=== PATIENT | male | born 1990 | race Two or more races ===

== ENCOUNTER 2019-10-26 19:18 | Emergency (ER) | payer MEDICAID, OTHER ==
[~2019-10-26] VITALS: Ht 182.9 cm; Wt 102.1 kg
[2019-10-26 20:15] VITALS: BP 125/84
[2019-10-26 20:57] LABS: Basophils # (auto) 0.1 10 ^3/uL (0-0.2); Basophils % (auto) 0.5 % (0.0-2.0); Eosinophils # (auto) 0.1 10 ^3/uL (0-0.8); Eosinophils % (auto) 1.2 % (0.0-7.0); Hematocrit 42.5 % (41.0-53.0); Hemoglobin 14.2 g/dL (13.5-17.5); Lymphocytes # (auto) 3.5 10 ^3/uL (0.4-5.4); Lymphocytes % (auto) 33.1 % (10.0-50.0); Mean Corpuscular Hemoglobin 27.8 pg (28.0-32.0); Mean Corpuscular Hgb Conc. 33.5 g/dL (32.0-36.0); Mean Corpuscular Volume 83.2 fL (80.0-100.0); Monocytes # (auto) 0.9 10 ^3/uL (0-1.3); Monocytes % (auto) 8.2 % (0.0-12.0); Neutrophils # (auto) 6.1 10 ^3/uL (1.6-8.6); Platelet Count (auto) 242 10^3/uL (140-450); Red Blood Cells 5.11 10^6/uL (4.5-5.90); Red Cell Distribution Width 13.5 % (11.8-14.3); White Blood Cell 10.7 10^3/uL (4.4-10.8)
[2019-10-26 21:15] LABS: Alanine Aminotransferase 44 U/L (16-61); Albumin 4.1 g/dL (3.4-5.0); Anion Gap 9 (5-15); Aspartate Aminotransferase 22 U/L (15-37); BUN/Creatinine Ratio 13.8; Blood Urea Nitrogen 13 mg/dL (7-18); Calcium 9.1 mg/dL (8.5-10.1); Carbon Dioxide 25 mmol/L (21-32); Chloride 102 mmol/L (98-107); GFR African American 120 mL/min; GFR Non-African American 99 mL/min; Glucose 83 mg/dL (74-106); Potassium 3.3 mmol/L (3.5-5.1); Sodium 136 mmol/L (136-145)
[2019-10-26 21:19] LABS: INR 1.08 (0.9-1.15); Partial Thromboplastin Time 31.9 sec (23.64-32.05)
[2019-10-26 21:20] LABS: Alkaline Phosphatase 74 U/L (45-117); Bilirubin, Total 0.4 mg/dL (0.2-1.0); Total Protein 7.9 g/dL (6.4-8.2)
== END 2019-10-26 21:50 | disposition home or self-care (01) ==
LOC: ER 19:18
DX: M79.10 Myalgia, unspecified site (principal); F41.9 Anxiety disorder, unspecified; M54.9 Dorsalgia, unspecified; R07.81 Pleurodynia; F17.210 Nicotine dependence, cigarettes, uncomplicated
CPT/HCPCS: 36415; 71046; 80053; 83735; 84443; 84484; 85025; 85610; 85730; 93005

== ENCOUNTER 2023-09-09 11:44 | Emergency (ER) | payer MEDICAID ==
[~2023-09-09] VITALS: Ht 182.9 cm; Wt 109.8 kg
[2023-09-09 12:30] VITALS: BP 133/74; PULSE 76; RESP 18; TEMP 97.5; O2SAT 96
[2023-09-09] MEDS ORDERED: NAPR-957 PO (13:32)
[2023-09-09] MEDS: KETOROLAC TROMETH 60MG/2ML VIAL IM ONE (13:39)
== END 2023-09-09 13:50 | disposition home or self-care (01) ==
LOC: ER 11:44
DX: S93.401A Sprain of unspecified ligament of right ankle, initial encounter (principal); F17.210 Nicotine dependence, cigarettes, uncomplicated; Z79.899 Other long term (current) drug therapy; X50.1XXA Overexertion from prolonged static or awkward postures, initial encounter; Y93.89 Activity, other specified; Y92.89 Other specified places as the place of occurrence of the external cause; Y99.0 Civilian activity done for income or pay
CPT/HCPCS: 29515; 73600; 96372; 99283; J1885

== ENCOUNTER 2024-05-07 16:25 | Emergency (ER) | payer MEDICAID ==
[~2024-05-07] VITALS: Ht 185.4 cm; Wt 100.0 kg
[~2024-05-07 16:25] MED LIST: NAPR-957 PO
[2024-05-07 16:45] VITALS: BP 148/99; PULSE 81; RESP 17; TEMP 99.5; O2SAT 96
[2024-05-07] MEDS ORDERED: IBUP-1456 PO (17:12)
[2024-05-07] MEDS: IBUPROFEN 800 MG TAB PO ONE (17:20)
== END 2024-05-07 17:23 | disposition home or self-care (01) ==
LOC: ER 16:25
DX: S99.922A Unspecified injury of left foot, initial encounter (principal); F17.210 Nicotine dependence, cigarettes, uncomplicated; Z79.1 Long term (current) use of non-steroidal anti-inflammatories (NSAID); W22.8XXA Striking against or struck by other objects, initial encounter; Y93.39 Activity, other involving climbing, rappelling and jumping off; Y92.89 Other specified places as the place of occurrence of the external cause; Y99.8 Other external cause status
CPT/HCPCS: 11730; 73630